=== PATIENT | female | born 1990 | race American Indian/Alaskan Native ===

== ENCOUNTER 2016-12-11 08:47 | Emergency (ER) | payer OTHER ==
[2016-12-11 08:59] VITALS: BMI 36.0
--- NOTE | 2016-12-11 09:14 | C.PDOC ---
History Of Present Illness 26 yo female, noprior hx presents with cough/eaton/congestion/sore throat. pt states symtpoms for "last month", although got worse last few days. no fevers. pt states saw pmd and given "cough med". no vomiting diarrhea, urinary changes, abdominal pain. Time Seen by Provider: 12/11/16 09:08 Chief Complaint (Nursing): Flu-like Symptoms Past Medical History Reviewed: Historical Data, Nursing Documentation, Vital Signs Vital Signs: Last Vital Signs Temp 98.3 F 12/11/16 09:00 Pulse 90 12/11/16 09:00 Resp 20 12/11/16 09:00 BP 137/82 12/11/16 09:00 Pulse Ox 100 12/11/16 09:00 - Medical History PMH: Denies: Asthma (pt denies) Surgical History: Denies: Tonsillectomy (pt denies) Family History: States: Unknown Family Hx - Social History Hx Alcohol Use: No Hx Substance Use: No - Immunization History Hx Influenza Vaccination: No Review Of Systems Except As Marked, All Systems Reviewed And Found Negative. ENT: Positive for: Nose Discharge, Throat Pain Respiratory: Positive for: Cough Physical Exam - Physical Exam Appears: Well, No Acute Distress, Other (speaking full sentences in nad) Skin: Normal Color, Warm, Dry Eye(s): bilateral: Normal Inspection, PERRL, EOMI Nose: Normal Throat: Erythema, No Exudate Neck: Normal Cardiovascular: Rhythm Regular Respiratory: Normal Breath Sounds Gastrointestinal/Abdominal: Normal Exam, Soft, No Tenderness, No Guarding, No Rebound Back: Normal Inspection Extremity: Normal ROM ED Course And Treatment O2 Sat by Pulse Oximetry: 100
== END 2016-12-11 09:08 | disposition left against medical advice (07) ==
LOC: C.ER 08:47
DX: R09.89 Other specified symptoms and signs involving the circulatory and respiratory systems (principal); Z02.9 Encounter for administrative examinations, unspecified

== ENCOUNTER 2017-04-10 20:48 | Emergency (ER) | payer OTHER ==
[2017-04-10 20:48] VITALS: BMI 36.0
[2017-04-10 21:01] VITALS: O2SAT 98
[2017-04-10 21:24] LABS: RBC URINE 3 /hpf (0-3); TRANSITIONAL EPITHIAL < 1 /hpf (0-3); URINE BACTERIA OCC (<OCC); URINE BILIRUBIN NEGATIVE (NEGATIVE); URINE BLOOD NEGATIVE (NEGATIVE); URINE COLOR Yellow (YELLOW); URINE GLUCOSE (UA) NORMAL (Normal); URINE KETONE NEGATIVE (NEGATIVE); URINE LEUKOCYTE ESTERASE TRACE Leu/uL (Negative); URINE PROTEIN NEGATIVE (NEGATIVE); URINE UROBILINOGEN NORMAL mg/dL (0.2-1.0); WBC URINE 5 /hpf (0-5)
[2017-04-10 21:52] LABS: BASO # 0.1 K/uL (0.0-0.2); BASO % 0.7 % (0.0-2.0); EOS # 0.3 K/uL (0.0-0.7); EOS % 2.7 % (0.0-4.0); HEMATOCRIT 38.3 % (34.0-47.0); LYMPH # 3.4 K/uL (1.0-4.3); LYMPH % 28.1 % (20.0-40.0); MEAN CELL VOLUME 83.8 fL (81.0-99.0); MEAN CORPUSCULAR HEMOGLOBIN 28.2 pg (27.0-31.0); MEAN CORPUSCULAR HGB CONC 33.7 g/dL (33.0-37.0); MONO # 0.7 K/uL (0.0-0.8); MONO % 6.1 % (0.0-10.0); NRBC % 0.1 % (0.0-2.0); WHITE BLOOD COUNT 12.2 K/uL (4.8-10.8)
[2017-04-10 22:03] LABS: ALKALINE PHOSPHATASE 90 U/L (38-126); ALT/SGPT 31 U/L (9-52); AST/SGOT 25 U/L (14-36); BILIRUBIN,TOTAL 0.5 mg/dL (0.2-1.3); BLOOD UREA NITROGEN 14 mg/dL (7-17); CALCIUM 9.3 mg/dl (8.6-10.4); CARBON DIOXIDE 27 mmol/L (22-30); CHLORIDE 99 mmol/L (98-107); GFR AFRICAN-AMERICAN > 60; GLUCOSE,RANDOM 99 mg/dL (65-105); POTASSIUM 4.3 mmol/L (3.6-5.2); SODIUM 140 mmol/L (132-148); TOTAL PROTEIN 8.1 g/dL (6.3-8.3)
--- NOTE | 2017-04-10 22:20 | C.PDOC ---
History Of Present Illness 26 year old female who presents to the ER with a complaint of cramping abdominal pain for the past 2-3 months. Patient notes she has not had a menstrual period since 01/02/17, she reports having a negative home last month and negative 2 days ago. Denies fever, chills, nausea, or vomiting. Time Seen by Provider: 04/10/17 21:08 Chief Complaint (Nursing): Abdominal Pain History Per: Patient History/Exam Limitations: no limitations Onset/Duration Of Symptoms: Days Current Symptoms Are (Timing): Still Present Radiation Of Pain To:: None Quality Of Discomfort: Cramping Associated Symptoms: denies: Fever, Chills, Nausea, Vomiting Exacerbating Factors: None Alleviating Factors: None Recent travel outside of the [place]: No Past Medical History Reviewed: Historical Data, Nursing Documentation, Vital Signs Vital Signs: Last Vital Signs Temp 98.3 F 04/10/17 22:39 Pulse 85 04/10/17 22:39 Resp 18 04/10/17 22:39 BP 130/84 04/10/17 22:39 Pulse Ox 98 04/10/17 23:19 - Medical History PMH: Asthma Surgical History: Tonsillectomy Family History: States: Unknown Family Hx - Social History Hx Alcohol Use: No Hx Substance Use: No - Immunization History Hx Influenza Vaccination: No Review Of Systems Constitutional: Negative for: Fever, Chills Gastrointestinal: Positive for: Abdominal Pain. Negative for: Nausea, Vomiting Physical Exam - Physical Exam Appears: Non-toxic, No Acute Distress, Other (Morbidly obese, small buffalo hump , supraclavicular fat pads, negative hirsute) Skin: Normal Color, Warm, Dry Head: Atraumatic, Normacephalic Oral Mucosa: Moist Chest: Symmetrical, No Tenderness Cardiovascular: Rhythm Regular, No Murmur Respiratory: Normal Breath Sounds, No Rales, No Rhonchi, No Wheezing Gastrointestinal/Abdominal: Soft, No Tenderness, Other (Central obesity, no abdominal stria, tympanic epigastrium, dull to percussion at left abdomen) Neurological/Psych: Oriented x3, Normal Speech, Normal Cognition ED Course And Treatment - Laboratory Results Result Diagrams: 04/10/17 21:47 04/10/17 21:47 Lab Interpretation: Normal (ua neg.) Urine POC: Negative O2 Sat by Pulse Oximetry: 98 (Room air) Pulse Ox Interpretation: Normal - Radiology CXR: Interpreted by Me CXR Interpretation: Yes: No Acute Disease - Other Rad abd x 2 X-Ray: Interpreted by Me (+FOS) Progress Note: Abdominal x-ray ordered. Reevaluation Time: 22:22 Reassessment Condition: Unchanged (benign) Medical Decision Making Medical Decision Making: acute on chronic constipation NOT white count mild and not L-shifted, belly benign, defer CT abd for low suspicion of underlying pathology and other obvious causality of crampy belly pain complaint. consider underlying Randolph's Syndrome- outpatient eval Disposition Doctor Will See Patient In The: Office Counseled Patient/Family Regarding: Studies Performed, Diagnosis - Disposition Referrals: [facility] [Outside] [facility] [Outside] [place] [facility] [facility] [Outside] Disposition: HOME/ ROUTINE Disposition Time: 22:23 Condition: GOOD Additional Instructions: Constipation: Drink a laxative now: 1 bottle of Magnesium Citrate, and re-evaluate your abdominal discomfort after using the bathroom 2-3 times. Stool softners 2x/day, Colace 100 mg Diet and exercise changes Randolph Syndrome vs Polycystic Ovary Syndrome (PCOS): Consider outpatient eval through our [facility] Urine cortisol, Dexamethasone suppression test Test NEGATIVE Instructions: Constipation (ED), Bart Syndrome (ED) Forms: [facility] (Azerbaijani) - Clinical Impression Clinical Impression: H/O abdominal colic - Scribe Statement The provider has reviewed the documentation as recorded by the Scribe Kamaljit Lainez All medical record entries made by the Scribe were at my direction and personally dictated by me. I have reviewed the chart and agree that the record accurately reflects my personal performance of the history, physical exam, medical decision making, and the department course for this patient. I have also personally directed, reviewed, and agree with the discharge instructions and disposition.
[2017-04-10 22:41] VITALS: BP 130/84; PULSE 85; RESP 18; TEMP 98.3
--- NOTE | 2017-04-11 08:43 | RAD ---
PROCEDURE: Radiographs of the chest and abdomen (obstructive series) HISTORY: abd pain COMPARISON: No prior. TECHNIQUE: AP radiograph of the chest, with upright and supine radiographs of the abdomen. FINDINGS: CHEST: Lungs: Clear. Cardiovascular: Normal size heart. No pulmonary vascular congestion. Pleura: No pleural fluid. No pneumothorax. Other findings: None. ABDOMEN AND PELVIS: Bowel: Unremarkable bowel gas pattern. No evidence of mechanical obstruction. Free air: None. Bones: Unremarkable. Other findings: None. IMPRESSION: Unremarkable radiographs of chest and abdomen. Nonobstructive bowel gas pattern appreciated. Consider persist or worsen consider follow-up abdomen and pelvis CT with oral and intravenous contrast.
== END 2017-04-10 22:39 | disposition home or self-care (01) ==
LOC: C.ER 20:48
DX: R10.84 Generalized abdominal pain (principal)

== ENCOUNTER 2018-11-13 13:51 | Emergency (ER) | payer OTHER ==
[2018-11-13 13:52] VITALS: BMI 36.0
[2018-11-13 13:59] VITALS: BP 132/83; PULSE 103; RESP 20; TEMP 99.5; O2SAT 95
--- NOTE | 2018-11-13 14:15 | C.PDOC ---
History Of Present Illness Pt is a 28 yr old female , LMP 07/05/2018 who is c/o lower back pain x 1 month and generalized abd pain & pelvic cramps since 6 AM today. No vaginal bleeding. Pt did not take any medication for her pain. Pt was seen by her OB doctor 2 days ago and states that her ultrasound was normal on that visit (but didn't have any abd pain at that time). Pt is currently taking Reglan for morning sickness. Pt also c/o some SOB this morning but states she is no longer having any SOB. No dysuria. [employer] Doctor: Dr. Castro / Time Seen by Provider: 11/13/18 14:02 Chief Complaint (Nursing): Abdominal Pain History Per: Patient Onset/Duration Of Symptoms: Hrs Past Medical History Reviewed: Historical Data, Nursing Documentation, Vital Signs Vital Signs: Last Vital Signs Temp 99.5 F 11/13/18 13:56 Pulse 103 H 11/13/18 13:56 Resp 20 11/13/18 13:56 BP 132/83 11/13/18 13:56 Pulse Ox 95 11/13/18 13:56 - Medical History PMH: Asthma Surgical History: Tonsillectomy Family History: States: Other Other Family History: cancer - Social History Hx Tobacco Use: No Hx Alcohol Use: No Hx Substance Use: No - Immunization History Hx Influenza Vaccination: No Review Of Systems Except As Marked, All Systems Reviewed And Found Negative. Constitutional: Negative for: Fever Cardiovascular: Negative for: Chest Pain Respiratory: Negative for: Cough Gastrointestinal: Positive for: Abdominal Pain Physical Exam - Physical Exam Appears: Well, Non-toxic, No Acute Distress Skin: Normal Color, Warm, Dry Head: Atraumatic Eye(s): bilateral: Normal Inspection, EOMI Ear(s): Bilateral: Normal Nose: Normal Oral Mucosa: Moist Lips: Normal Appearing Throat: Normal Neck: Normal Lymphatic: Deferred Chest: Symmetrical Cardiovascular: Rhythm Regular Respiratory: Normal Breath Sounds, No Rales, No Rhonchi, No Wheezing Gastrointestinal/Abdominal: Bowel Sounds, Soft, Tenderness ((+) suprapubic), No Guarding, No Rebound Rectal: Deferred Back: Normal Inspection Extremity: Bilateral: Atraumatic, Normal ROM Neurological/Psych: Oriented x3, Normal Motor, Normal Sensation ED Course And Treatment - Laboratory Results Result Diagrams: 11/13/18 14:15 11/13/18 14:15 O2 Sat by Pulse Oximetry: 95 Medical Decision Making Medical Decision Making: Initial Impression: with abd pain Differential diagnosis includes but is not limited to: round ligament pain, UTI Initial Plan: Will check labs and get US Progress note: Pt feels better. UA shows UTI. US shows IUP. Will d/c on abx. Disposition Counseled Patient/Family Regarding: Studies Performed, Diagnosis, Need For Followup, Rx Given - Disposition Referrals: Woodrow Castro MD [Medical Doctor] - Disposition: HOME/ ROUTINE Disposition Time: 15:20 Condition: STABLE Additional Instructions: Raymond, thank you for letting us take care of you today. Return to the ER if your symptoms worsen, or if any problems. Take the medication listed below as prescribed. Follow up with Dr. Ramirez in 2-3 days for a re-evaluation. Prescriptions: Acetaminophen [Tylenol] 2 tab PO Q6 PRN #60 capsule PRN Reason: Pain, Moderate (4-7) Cephalexin [cephalexin] 1 tab PO BID #14 cap Instructions: Urinary Tract Infections in Adults, Round Ligament Pain Forms: [facility] (Surinamese) Print Language: NIUEAN - POA Present On Arrival: None - Clinical Impression Clinical Impression: UTI (urinary tract infection), Round ligament pain
[2018-11-13 14:21] LABS: BASO % 0.3 % (0.0-2.0); EOS # 0.1 K/uL (0.0-0.7); EOS % 1.5 % (0.0-4.0); HEMOGLOBIN 11.5 g/dL (11.0-16.0); LYMPH # 1.7 K/uL (1.0-4.3); LYMPH % 18.1 % (20.0-40.0); MEAN CELL VOLUME 85.7 fL (81.0-99.0); MEAN CORPUSCULAR HEMOGLOBIN 29.3 pg (27.0-31.0); MEAN CORPUSCULAR HGB CONC 34.2 g/dL (33.0-37.0); MEAN PLATELET VOLUME 8.4 fL (7.2-11.7); MONO # 0.6 K/uL (0.0-0.8); MONO % 6.7 % (0.0-10.0); NEUT # 6.7 K/uL (1.8-7.0); NEUT % 73.4 % (50.0-75.0); RBC 3.94 Mil/uL (3.80-5.20); RED CELL DISTRIBUTION WIDTH 13.6 % (11.5-14.5); WHITE BLOOD COUNT 9.2 K/uL (4.8-10.8)
[2018-11-13 14:27] LABS: SQUAMOUS EPITHIAL 13 /hpf (0-5); URINE BACTERIA OCC (<OCC); URINE BILIRUBIN NEGATIVE (NEGATIVE); URINE BLOOD NEGATIVE (NEGATIVE); URINE CLARITY Hazy (Clear); URINE COLOR Yellow (YELLOW); URINE GLUCOSE (UA) NORMAL (Normal); URINE LEUKOCYTE ESTERASE 2+ Leu/uL (Negative); URINE PROTEIN NEGATIVE (NEGATIVE)
[2018-11-13 14:35] LABS: ALB/GLOB RATIO 1.2 (1.0-2.1); ALBUMIN 4.1 g/dL (3.5-5.0); ALT/SGPT 22 U/L (9-52); AST/SGOT 26 U/L (14-36); BLOOD UREA NITROGEN 7 mg/dL (7-17); CALCIUM 9.6 mg/dl (8.6-10.4); GFR NON-AFRICAN AMERICAN > 60
--- NOTE | 2018-11-13 14:58 | US ---
Date of service: 11/13/2018 PROCEDURE: OB Pelvic Ultrasound HISTORY: and abd pain LMP: 07/05/2018 COMPARISON: None available. FINDINGS: UTERUS: Gestational sac: Single intrauterine gestation. Heart rate: 146 bpm. age (Ultrasound estimated): 17 weeks 4 days +/-1 week 2 days [place]-gestational hemorrhage: None. Date of delivery (Ultrasound estimated) : 04/19/2019 Placenta seen at the posterior wall. The fetus is seen at breech presentation. CERVIX: Measures 3.8 cm. Long and closed. No cervical abnormality seen. RIGHT OVARY: Was not visualized LEFT OVARY: Was not visualized FREE FLUID: None. OTHER FINDINGS: None. IMPRESSION: Single intrauterine live with ultrasound estimated gestational age of 17 weeks 4 days +/-1 week 2 days. Estimated date of delivery by ultrasound is 04/19/2019. Placenta in the posterior wall. Breech presentation. This study was not performed to evaluate the anatomy therefore if clinically warranted dedicated 2nd trimester evaluation may be obtained .
== END 2018-11-13 15:38 | disposition home or self-care (01) ==
LOC: C.ER 13:51
DX: O23.42 Unspecified infection of urinary tract in pregnancy, second trimester (principal); R10.2 Pelvic and perineal pain; Z3A.17 17 weeks gestation of pregnancy